=== PATIENT | male | born 1965 | race Caucasian/White ===

== ENCOUNTER 2022-01-10 12:30 | Inpatient (IN) | payer OTHER ==
[2022-01-10] MEDS ORDERED: MAG HYDROX/AL HYDROX/SIMETH 30 ML UNIT-DOSE CUP PO PRN (13:49)
[2022-01-10] MEDS ORDERED: diazePAM 5 MG TABLET PO PRN (13:49)
[2022-01-10] MEDS ORDERED: MENTHOL/PHENOL 1 EACH UD MM PRN (13:49)
[2022-01-10] MEDS ORDERED: ACETAMINOPHEN 325 MG TABLET (FP) PO PRN (13:49)
[2022-01-10] MEDS ORDERED: ONDANSETRON *ODT* 4 MG TABLET SL PRN (13:49)
[2022-01-10] MEDS ORDERED: NALOXONE HCL 0.4 MG/ML VIAL IM PRN (13:49)
[2022-01-10] MEDS ORDERED: LOPERAMIDE HCL 2 MG CAPSULE PO PRN (13:49)
[2022-01-10] MEDS ORDERED: cloNIDine HCL 0.1 MG TABLET PO ONE (13:49)
[2022-01-10] MEDS ORDERED: MAGNESIUM CITRATE 300 ML BOTTLE PO PRN (13:49)
[2022-01-10] MEDS ORDERED: BISMUTH SUBSALICYLATE 524 MG/30 ML PO PRN (13:49)
[2022-01-10] MEDS ORDERED: MAGNESIUM HYDROX 2400MG/30ML ORAL SUSPENSION 30 ML CUP PO PRN (13:49)
[2022-01-10] MEDS ORDERED: BUPRENORPHINE HCL 150 MCG, BUPRENORPHINE HCL 75 MCG BC ONE (14:00)
[2022-01-10 14:40] VITALS: BMI 26.3
[2022-01-10] MEDS ORDERED: BUPRENORPHINE HCL 75 MCG FILM BC ONE (15:40)
[2022-01-10] MEDS ORDERED: BUPRENORPHINE HCL 150 MCG FILM BC ONE (15:40)
[2022-01-10] MEDS ORDERED: cloNIDine HCL 0.1 MG TABLET ONE (15:40)
[2022-01-10] MEDS ORDERED: hydrOXYzine PAMOATE 25 MG CAPSULE (FP) PO ONE (15:41)
[2022-01-10] MEDS: hydrOXYzine PAMOATE 25 MG CAPSULE (FP) PO SCH ×3 (15:49→22:17)
[2022-01-10 16:37] LABS: HEMATOCRIT 37.7 % (35.4-49); HEMOGLOBIN 12.8 GM/dL (11.7-16.9); MCH 32.5 pg (25.7-33.7); MCHC 33.8 g/dl (32.0-35.9); MEAN PLT VOLUME 8.8 fl (7.5-11.1); PLATELET COUNT 286 10^3/uL (134-434); RBC 3.93 M/mm3 (4.00-5.60); RDW 12.9 % (11.9-15.9)
[2022-01-10 16:40] LABS: CALCIUM 9.2 mg/dL (8.5-10.1)
[2022-01-10 16:41] LABS: ALBUMIN 4.2 g/dl (3.4-5.0); BLOOD UREA NITROGEN 15.9 mg/dL (7-18)
[2022-01-10 16:45] LABS: TOT PROT 7.1 g/dl (6.4-8.2)
[2022-01-10 16:46] LABS: BILIRUBIN,TOTAL 0.3 mg/dL (0.2-1)
[2022-01-10] MEDS: METHOCARBAMOL 500 MG TABLET PO PRN (17:43)
[2022-01-10] MEDS: PRENATAL VITAMINS W/ FOLIC ACID TABLET (FP) PO SCH (17:43)
[2022-01-10] MEDS ORDERED: cloNIDine HCL 0.1 MG TABLET PO PRN (17:49)
[2022-01-10] MEDS: NICOTINE 10 MG CARTRIDGE (INHALER) IH PRN (18:09)
[2022-01-10] MEDS: THIAMINE HCL 100 MG TABLET (FP) PO SCH (22:17)
[2022-01-10] MEDS: MELATONIN 5 MG TABLETS PO SCH (22:17)
[2022-01-10] MEDS: IBUPROFEN 400 MG TABLET (FP) PO PRN (22:17)
[2022-01-10] MEDS: SODIUM CHLORIDE NASAL SPRAY 44 ML BOTTLE NS PRN (23:23)
[2022-01-11] MEDS ORDERED: P-EPHED 60MG/TRIPROLIDI 2.5MG TABLET PO PRN (02:39)
[2022-01-11] MEDS: METHOCARBAMOL 500 MG TABLET PO PRN ×2 (02:43→22:11)
[2022-01-11] MEDS: IBUPROFEN 400 MG TABLET (FP) PO PRN ×2 (04:25→14:41)
[2022-01-11] MEDS: hydrOXYzine PAMOATE 25 MG CAPSULE (FP) PO SCH ×5 (05:30→22:10)
[2022-01-11] MEDS ORDERED: BUPRENORPHINE HCL 150 MCG FILM BC ONE ×2 (05:31→17:21)
[2022-01-11] MEDS ORDERED: BUPRENORPHINE HCL 75 MCG FILM BC ONE ×2 (05:32→17:21)
[2022-01-11] MEDS: BUPRENORPHINE HCL 150 MCG, BUPRENORPHINE HCL 75 MCG BC SCH ×2 (05:32→17:43)
[2022-01-11] MEDS: SODIUM CHLORIDE NASAL SPRAY 44 ML BOTTLE NS PRN ×2 (05:35→14:30)
[2022-01-11] MEDS ORDERED: ALPRAZolam 1 MG TABLET PO PRN (10:10)
[2022-01-11] MEDS ORDERED: OXYMETAZOLINE 0.05% NASAL SOLUTION 15 ML BOTTLE NS PRN ×2 (10:10→13:09)
[2022-01-11] MEDS: PRENATAL VITAMINS W/ FOLIC ACID TABLET (FP) PO SCH (10:19)
[2022-01-11] MEDS: PANTOPRAZOLE 40 MG TABLET PO SCH (10:19)
[2022-01-11] MEDS: ACETAMINOPHEN 325 MG TABLET (FP) PO PRN ×2 (10:20→17:46)
[2022-01-11] MEDS: diazePAM 5 MG TABLET PO PRN ×2 (14:43→22:10)
[2022-01-11] MEDS: OXYMETAZOLINE 0.05% NASAL SOLUTION 15 ML BOTTLE NS PRN ×2 (15:17→22:10)
[2022-01-11 15:55] LABS: HIV INTERPRETATION NEGATIVE (NEGATIVE)
[2022-01-11] MEDS: MELATONIN 5 MG TABLETS PO SCH (22:10)
[2022-01-11] MEDS: THIAMINE HCL 100 MG TABLET (FP) PO SCH (22:10)
[2022-01-12] MEDS: hydrOXYzine PAMOATE 25 MG CAPSULE (FP) PO SCH ×5 (05:25→22:09)
[2022-01-12] MEDS: BUPRENORPHINE HCL 450 MCG FILM BC SCH ×2 (05:25→17:56)
[2022-01-12] MEDS: ACETAMINOPHEN 325 MG TABLET (FP) PO PRN ×2 (05:59→17:53)
[2022-01-12] MEDS: METHOCARBAMOL 500 MG TABLET PO PRN ×3 (06:01→22:10)
[2022-01-12] MEDS: OXYMETAZOLINE 0.05% NASAL SOLUTION 15 ML BOTTLE NS PRN ×3 (08:44→22:09)
[2022-01-12] MEDS: PRENATAL VITAMINS W/ FOLIC ACID TABLET (FP) PO SCH (10:05)
[2022-01-12] MEDS: PANTOPRAZOLE 40 MG TABLET PO SCH (10:05)
[2022-01-12] MEDS: diazePAM 5 MG TABLET PO PRN ×2 (10:08→17:54)
[2022-01-12] MEDS: IBUPROFEN 400 MG TABLET (FP) PO PRN (14:18)
[2022-01-12] MEDS: MELATONIN 5 MG TABLETS PO SCH (22:09)
[2022-01-12] MEDS: THIAMINE HCL 100 MG TABLET (FP) PO SCH (22:09)
[2022-01-13] MEDS: BUPRENORPHINE/NALOXONE 4 MG/1 MG FILM PACKET SL SCH ×2 (05:34→17:29)
[2022-01-13] MEDS: hydrOXYzine PAMOATE 25 MG CAPSULE (FP) PO SCH ×5 (05:35→22:28)
[2022-01-13] MEDS: METHOCARBAMOL 500 MG TABLET PO PRN ×2 (05:35→13:49)
[2022-01-13] MEDS: PRENATAL VITAMINS W/ FOLIC ACID TABLET (FP) PO SCH (10:07)
[2022-01-13] MEDS: diazePAM 5 MG TABLET PO PRN ×2 (10:07→22:29)
[2022-01-13] MEDS: PANTOPRAZOLE 40 MG TABLET PO SCH (10:07)
[2022-01-13] MEDS: ACETAMINOPHEN 325 MG TABLET (FP) PO PRN (10:08)
[2022-01-13] MEDS: OXYMETAZOLINE 0.05% NASAL SOLUTION 15 ML BOTTLE NS PRN ×3 (10:10→22:28)
[2022-01-13] MEDS: NICOTINE 10 MG CARTRIDGE (INHALER) IH PRN (11:04)
[2022-01-13] MEDS: THIAMINE HCL 100 MG TABLET (FP) PO SCH (22:28)
[2022-01-13] MEDS: MELATONIN 5 MG TABLETS PO SCH (22:28)
[2022-01-14] MEDS: hydrOXYzine PAMOATE 25 MG CAPSULE (FP) PO SCH ×2 (05:36→10:31)
[2022-01-14] MEDS ORDERED: BUPRENORPHINE/NALOXONE 8 MG/2 MG FILM PACKET SL ONE (06:00)
[2022-01-14 09:17] VITALS: BP 147/87; PULSE 102; TEMP 97.1
[2022-01-14] MEDS: PRENATAL VITAMINS W/ FOLIC ACID TABLET (FP) PO SCH (10:31)
[2022-01-14] MEDS: PANTOPRAZOLE 40 MG TABLET PO SCH (10:31)
== END 2022-01-14 11:40 | disposition home or self-care (01) | DRG 897 ==
LOC: YASAS 12:30 → Y3N 15:48
PROVIDERS: ADMIT Allergy & Immunology; ATTEND Allergy & Immunology
PROC: HZ2ZZZZ Detoxification Services for Substance Abuse Treatment (ICD-10-PCS; principal; 2022-01-10)
DX: F11.23 Opioid dependence with withdrawal (principal); F13.20 Sedative, hypnotic or anxiolytic dependence, uncomplicated; F10.20 Alcohol dependence, uncomplicated; F12.20 Cannabis dependence, uncomplicated; F17.210 Nicotine dependence, cigarettes, uncomplicated; F31.9 Bipolar disorder, unspecified; F19.24 Other psychoactive substance dependence with psychoactive substance-induced mood disorder; F90.9 Attention-deficit hyperactivity disorder, unspecified type; G62.9 Polyneuropathy, unspecified; J44.9 Chronic obstructive pulmonary disease, unspecified; K21.9 Gastro-esophageal reflux disease without esophagitis; M54.50 Low back pain, unspecified; G89.29 Other chronic pain
CPT/HCPCS: 36415; 80053; 83036; 85027; 86780; 87389; 87811; C9803-CS; J0735; Q0162; U0003; U0005